=== PATIENT | female | born 1965 | race Caucasian/White ===

== ENCOUNTER 2016-12-10 05:06 | Emergency (ER) | payer BC ==
[~2016-12-10] VITALS: Ht 167.6 cm; Wt 100.0 kg
[2016-12-10 05:09] VITALS: BP 135/87; PULSE 105; RESP 22; TEMP 97.8; O2SAT 97
[2016-12-10 05:16] VITALS: BP 138/88; PULSE 93; RESP 16; TEMP 98.3; O2SAT 97
[2016-12-10] MEDS ORDERED: SODIUM CHLOR 0.9% 1000 ML INJ 1,000 ML IV SCH (05:17)
[2016-12-10 05:23] VITALS: RESP 20; O2SAT 87
--- NOTE | 2016-12-10 05:23 | PD ---
HPI Chief Complaint: Allergic/Adverse Reaction Time Seen by Provider: 05:14 Travel History International Travel<30 days: No Contact w/Intl Traveler<30days: No Traveled to known affect area: No History of Present Illness HPI AWAKEN FROM SLEEP WITH SWELLING TO LIP, HIVES, UNKNOWN ALLERGEN, IS CURRENTLY ON PO MEDROL PATTI FOR UNRELATED EVENT PFSH Social History Tobacco Use: No Allergies-Medications (Allergen,Severity, Reaction): Coded Allergies: Nonsteroidal Anti-Inflammatory Agts (Verified Allergy, Unknown, 12/10/16) Penicillin (Verified Allergy, Unknown, 12/10/16) Reported Meds & Prescriptions Reported Meds & Active Scripts Active Reported Levothyroxine (Levothyroxine Sodium) 75 Mcg Tab 75 Mcg PO DAILY Lovastatin 10 Mg Tab 10 Mg PO DAILY Effexor (Venlafaxine HCl) 100 Mg Tab 100 Mg PO Q12H Xyzal (Levocetirizine Dihydrochloride) 2.5 Mg/5 Ml Solution Actos (Pioglitazone HCl) 15 Mg Tab 15 Mg PO DAILY Glimepiride 1 Mg Tab 1 Mg PO DAILY Take with breakfast or first main meal Metformin (Metformin HCl) 1,000 Mg Tab 1,000 Mg PO BIDPC With meals Prednisone 2.5 Mg Tab 2.5 Mg PO BID Ranitidine (Ranitidine HCl) 150 Mg Cap 150 Mg PO BID Hydroxyzine HCl 10 Mg Tab 10 Mg PO TID Review of Systems Except as stated in HPI: all other systems reviewed are Neg Skin: Positive Rash, Positive Hives (LOWER LIP SWELLING) Physical Exam Narrative GENERAL: SKIN: Warm and dry. EXCEPT FOR GENERALIZED HIVES HEAD: Atraumatic. Normocephalic. EYES: Pupils equal and round. No scleral icterus. No injection or drainage. ENT: No nasal bleeding or discharge. Mucous membranes pink and moist. LOWER LIP SWELLING BUT NO UVULAR EDEMA, NO STRIDOR, NO WHEEZING, NO E/O RESP DISTRESS NECK: Trachea midline. No JVD. CARDIOVASCULAR: Regular rate and rhythm. RESPIRATORY: No accessory muscle use. Clear to auscultation. Breath sounds equal bilaterally. GASTROINTESTINAL: Abdomen soft, non-tender, nondistended. MUSCULOSKELETAL: Extremities without clubbing, cyanosis, or edema. No obvious deformities. NEUROLOGICAL: Awake and alert. No obvious cranial nerve deficits. Motor grossly within normal limits. Five out of 5 muscle strength in the arms and legs. Normal speech. PSYCHIATRIC: Appropriate mood and affect; insight and judgment normal. Data Data Last Documented VS Vital Signs Date Time Temp Pulse Resp B/P Pulse Ox O2 Delivery O2 Flow Rate FiO2 12/10/16 05:23 20 87 Room Air 12/10/16 05:18 88 12/10/16 05:16 98.3 138/88 Orders Ecg Monitoring (12/10/16 05:17) Iv Access Insert/Monitor (12/10/16 05:17) Oximetry (12/10/16 05:17) Diphenhydramine Inj (Benadryl Inj) (12/10/16 05:30) Methylprednisolone So Succ Inj (Solumedr (12/10/16 05:30) Famotidine Inj (Pepcid Inj) (12/10/16 05:30) Sodium Chlor 0.9% 1000 Ml Inj (Ns 1000 M (12/10/16 05:17) Epinephrine (1:1000) Inj (Adrenalin (1:1 (12/10/16 05:30) MDM Medical Decision Making Medical Screen Exam Complete: Yes Emergency Medical Condition: Yes Medical Record Reviewed: Yes Differential Diagnosis ANGIOEDEMA V HIVES V ALLERGIC RXN Narrative Course PATIENT IMMEDIATELY AFTER EVALUATION GIVEN H1/H2 BLOCKERS, EPIPEN AND SOLUMEDROL IV. PATIENT WAS NORMOTENSIVE AND HAD NORMAL PULSE OXIMETRY ON RA. AFTER 1HR OBSERVATION PERIOD PATIENT CONTINUED TO BE STABLE Diagnosis Primary Impression: ANGIOEDEMA Patient Instructions: Angioedema (ED), General Instructions Additional Instructions: CONTINUE TAKING YOUR ATARAX, XYZAL, STEROID AND EPIPEN PREVIOUSLY SCHEDULED Disposition: 01 DISCHARGE HOME Condition: Stable Pepe Martínez MD Dec 10, 2016 05:23
[2016-12-10] MEDS ORDERED: METF1000 PO (05:27)
[2016-12-10] MEDS ORDERED: GLIM1TAB PO (05:27)
[2016-12-10] MEDS ORDERED: HYDR-755 PO (05:27)
[2016-12-10] MEDS ORDERED: RANI150C PO (05:27)
[2016-12-10] MEDS ORDERED: PRED2.5T PO (05:27)
[2016-12-10] MEDS ORDERED: LEVO1SOL (05:28)
[2016-12-10] MEDS ORDERED: LOVA10TA PO (05:28)
[2016-12-10] MEDS ORDERED: ACTO15TA11 PO (05:28)
[2016-12-10] MEDS ORDERED: VENL100T PO (05:28)
[2016-12-10] MEDS ORDERED: LEVO75TA3 PO (05:28)
[2016-12-10] MEDS ORDERED: methylPREDNISolone SOD SUCC 125 MG/2 ML VIAL IM ONE (05:30)
[2016-12-10] MEDS ORDERED: diphenhydrAMINE HCL 50 MG/ML VIAL IVP ONE (05:30)
[2016-12-10] MEDS ORDERED: EPINEPHrine HCL (1:1000) 1 MG/ML VIAL IM ONE (05:30)
[2016-12-10] MEDS ORDERED: FAMOTIDINE 20 MG/2 ML VIAL IV PUSH ONE (05:30)
== END 2016-12-10 06:48 | disposition home or self-care (01) ==
LOC: NEPC 05:06
DX: T78.3XXA Angioneurotic edema, initial encounter (principal); L50.0 Allergic urticaria; R22.0 Localized swelling, mass and lump, head; Z88.0 Allergy status to penicillin; Z79.899 Other long term (current) drug therapy
CPT/HCPCS: 96372; 96374; 96375; 99284; J0171; J1200; J2930; J7030